=== PATIENT | female | born 1960 | race Caucasian/White ===

== ENCOUNTER 2016-10-06 09:00 | Outpatient (CLI) | payer BC, OTHER ==
[2016-10-06 11:19] LABS: #Basophils 0.1 thou/uL (0.0-0.2); #Lymphocytes 1.7 thou/uL (1.20-3.40); #Monocytes 0.7 thou/uL (0.11-0.59); #Neutrophils 7.2 thou/uL (1.40-6.50); %Basophils 0.5 % (0.0-1.0); %Eosinophils 0.1 % (0.0-10.0); %Lymphocytes 17.8 % (21.0-51.0); %Monocytes 6.9 % (0.0-10.0); %Neutrophils 74.6 % (42.0-75.0); Hemoglobin 15.9 g/dL (12.0-16.0); Mean Corpuscular HGB CONC 34.4 g/dL (32.0-36.0); Mean Corpuscular Hemoglobin 30.6 pg (27.0-31.0); Mean Platelet Volume 7.1 fL (7.4-10.4); Platelet Count 320 thou/uL (130-400); RBC Distribution Width 11.2 % (11.5-14.5); White Blood Cell (WBC) Count 9.6 thou/uL (4.8-10.8)
[2016-10-06 11:27] LABS: ALT (SGPT) 49 U/L (8-55); AST (SGOT) 31 U/L (5-34); Albumin 4.7 g/dL (3.5-5.0); Alkaline Phosphatase 80 U/L (40-150); Anion Gap 17 mmol/L (10-20); BUN (Urea Nitrogen) 14 mg/dL (9.8-20.1); Bilirubin, Total 0.8 mg/dL (0.2-1.2); Calc. Creatinine Clearance 0 mL/min (70-130); Calcium 9.8 mg/dL (7.8-10.44); Carbon Dioxide 26 mmol/L (22-29); Cardiac Risk 4.6 (Less than 4.5); Chloride 104 mmol/L (98-107); Cholesterol 195 mg/dl (< 200 Desired); Estimated GFR-MDRD 72; Globulin 3.2 g/dL (2.4-3.5); Glucose 116 mg/dL (70-105); HDL Cholesterol 42 mg/dL (>60 Neg Risk); LDL Cholesterol, Calculated 134 mg/dL; Potassium 4.9 mmol/L (3.5-5.1); Protein, Total 7.9 g/dL (6.0-8.3); Sodium 142 mmol/L (136-145); Triglycerides 97 mg/dL (Less than 150)
== END 2016-10-06 09:01 | disposition home or self-care (01) ==
LOC: HPCALD 09:00
PROVIDERS: ATTEND Family Medicine
DX: Z13.6 Encounter for screening for cardiovascular disorders (principal); I10 Essential (primary) hypertension; R53.83 Other fatigue
CPT/HCPCS: 36415; 80053; 80061; 84443; 85025

== ENCOUNTER 2022-06-05 11:42 | Emergency (ER) | payer BC, OTHER ==
[2022-06-05] MEDS ORDERED: Cephalexin 250 MG CAP ONE (12:16)
== END 2022-06-05 12:22 | disposition home or self-care (01) ==
LOC: BURERS 11:42
DX: L02.511 Cutaneous abscess of right hand (principal); L03.011 Cellulitis of right finger
CPT/HCPCS: 99283